=== PATIENT | female | born 1960 | race Caucasian/White ===

== ENCOUNTER 2023-10-20 07:36 | Emergency (ER) | payer MEDICARE, OTHER | END 2023-10-20 09:37 | disposition home or self-care (01) | LOC: JP.ED 07:36 | DX: S82.831A Other fracture of upper and lower end of right fibula, initial encounter for closed fracture (principal); Z88.1 Allergy status to other antibiotic agents; Z79.899 Other long term (current) drug therapy; Z90.710 Acquired absence of both cervix and uterus; X50.1XXA Overexertion from prolonged static or awkward postures, initial encounter; Y93.89 Activity, other specified | CPT/HCPCS: 73610-26-RT; 73610-RT; 99283 ==